=== PATIENT | female | born 1990 | race Caucasian/White ===

== ENCOUNTER → 2022-07-09 | Outpatient (CLI) | payer BC ==
[2022-07-09 11:16] VITALS: BP 128/85; PULSE 85; RESP 16; TEMP 98.2
--- NOTE | 2022-07-09 11:40 | P.GSHP ---
History of Present Illness H&P Date: 07/09/22 Chief Complaint: mass right breast Tj is a 31 year old white femlae seen in consultation for Nancy Molina regarding a mass in her right breast. She has been present for approximately 2 months. It has not increased in size. It is tender at times. She had a right breast mammogram and ultrasound performed 06-03-22. This revealed a approximately 2 cm mass in the 11 o'clock position of the right breast. On ultrasound the mass was irregular, which showed circumscribed margins, with increased through transmission. She has never had any surgery on her breast. She is not complaining of any other lumps masses or nodules in her breasts. There is no history of any trauma or infection in the breast. She didclear nipple discharge on the right approximately a week after she noticed the lump. Caffeine: mountain dew 1 liter/day Nicotine: 1/2 PPD since Chocolate: daily BCP: used them for about 1 year in her teens; DEPO shots for 5 years in her mid 20's Family history: father: prostate cancer maternal grandfather: prostate cancer Hormonal History: menarche: 13 G0 periods irregular, endometirosis; LMP first of June Surgical History: left ankle wisdom scope on uterus Medical History: depression/anxiety Social History: nicotine: Half a pack per day since Alcohol: Negative Drugs: Negative - Constitutional Constitutional: Reports sweats - EENT Eyes: denies blurred vision, denies pain Ears: deny: decreased hearing, tinnitus Ears, nose, mouth and throat: Denies headache, Denies sore throat - Breasts Breasts: bilateral: as per HPI - Cardiovascular Cardiovascular: Denies chest pain, Denies shortness of breath - Respiratory Respiratory: Denies cough, Denies 7 - Gastrointestinal Gastrointestinal: Denies abdominal pain, Denies diarrhea, Denies nausea, Denies vomiting - Genitourinary (Female) Genitourinary: Denies dysuria, Denies hematuria - Menstruation Menstruation: Reports cycle variable - Musculoskeletal Musculoskeletal: Denies myalgias - Integumentary Integumentary: Denies pruritus, Denies rash - Neurological Neurological: Denies numbness, Denies weakness - Psychiatric Psychiatric: Reports anxiety, Reports depression - Endocrine Endocrine: Denies fatigue, Denies weight change - Hematologic/Lymphatic Comment: none - Allergic/Immunologic Allergic/Immunologic: Reports as per HPI Past Medical History History of Any Multi-Drug Resistant Organisms: None Reported Smoking Status: Current every day smoker Medications and Allergies Home Medications Medication Instructions Recorded Confirmed Type Venlafaxine HCl ER [Effexor Xr] 75 mg PO DAILY 07/09/22 07/09/22 History Allergies Allergy/AdvReac Type Severity Reaction Status Date / Time No Known Allergies Allergy Unverified 07/09/22 11:16 Surgical - Exam Vital Signs Temp Pulse Resp BP Pulse Ox 98.2 F 85 16 128/85 99 07/09/22 11:13 07/09/22 11:13 07/09/22 11:13 07/09/22 11:13 07/09/22 11:13 BMI: 24.8 - General no distress - Eyes normal ocular movement - Neck trachea midline - Respiratory normal respiratory effort - Cardiovascular Rhythm: regular Heart Sounds: normal: S1, S2 - Abdomen Abdomen: soft, non tender, no guarding, no rigid, no rebound - Integumentary normal turgor - Neurologic no disoriented, no combative - Musculoskeletal normal gait, normal posture - Psychiatric oriented to time, oriented to person, oriented to place, speech is normal, memory intact Breast Exam: BRA: large sports bra inspection: Bilateral grade 2 ptosis Palpation: Right breast: Multiple positional exam approximately 2 cm nodule at the 12 o'clock position consistent with that which is seen on ultrasound no other dominant masses or nodules of concern breast tissue is very dense Right axilla: No adenopathy of concern Left breast: Multiple positional exam fibrocystic changes, dense breast tissue, no dominant masses or nodules of concern There is a dark nevus on the right breast in the inner aspect Results Right breast mammogram and ultrasound reviewed with Dr. Mckee, the patient has not had a left breast mammogram Assessment and Plan Assessment: Impression: Palpable mass right breast and consistent with radiographic abnormality most likely represents a fibroadenoma this is symptomatic and painful for the patient Patient has not had a left breast radiographic evaluation Plan: Ultrasound-guided core biopsy of the right breast followed by resection in the operating room Removal of the nevus on the right breast Left breast radiographic evaluation CC: Nancy Molina
== END ==
LOC: WWCWWP 10:54
PROVIDERS: ATTEND Surgery
DX: R92.8 Other abnormal and inconclusive findings on diagnostic imaging of breast (principal); E66.9 Obesity, unspecified; Z68.24 Body mass index [BMI] 24.0-24.9, adult

== ENCOUNTER → 2022-07-22 | Day surgery (SDC) | payer BC ==
--- NOTE | 2022-07-28 09:21 | USB ---
Pathology Description: Location: 11 o'clock, upper outer quadrant. Marker Left Behind. Needle Type: Mammotome Cores: 6 Skin Nicks: 1 Gauge: 13 The procedure of ultrasound guided core biopsy was explained to the patient. Benefits, alternatives, and risks were discussed. An informed consent was then obtained. A timeout was performed. The patient was placed in supine positioning for imaging and for the procedure. The overlying skin was prepped and draped in usual sterile fashion. Lidocaine was used as anesthetic into the skin and subcutaneous tissue up to area of concern in the right breast. A small skin geneva was made with surgical scalpel. Under ultrasound guidance, a 12-gauge vacuum assisted biopsy device was used to obtain 6 core samples. A biopsy clip was left in lesion. Coil Hydromark core marker was placed. The patient tolerated the procedure well without any immediate complication. The patient was kept in the radiology department for short stay after the procedure and then discharged home in stable condition. Postprocedure mammogram: The patient was transferred to mammography for physician ordered post procedure mammogram for clip placement verification. Impression: Successful ultrasound guided core biopsy of area of concern in the right breast, full pathology results to follow. Recommendations: 1. Recommendations are pending pathology results. Pathology Results: Result: Benign, Fibroadenoma. RIGHT BREAST, ELEVEN O'CLOCK, ULTRASOUND GUIDED NEEDLE CORE BIOPSY: Fibroadenoma. Tissue Density: Right: The breast tissue is heterogeneously dense. This may lower the sensitivity of mammography. Overall Assessment: Benign Assessment: MG diagnostic mammo RT wo CAD - Right: Benign, BI-RAD 2. Management: Diagnostic Breast Ultrasound of the right breast in 6 months. Electronically signed and approved by: Anthony Adams D.O. Radiologis [facility]
== END ==
LOC: RADUSWWP 10:13
PROVIDERS: ATTEND Surgery
DX: D24.1 Benign neoplasm of right breast (principal); R92.8 Other abnormal and inconclusive findings on diagnostic imaging of breast
CPT/HCPCS: 88305; 77065; 19083; A4648

== ENCOUNTER → 2022-07-31 | Outpatient (CLI) | payer BC ==
[2022-07-31 14:29] VITALS: BP 123/90; PULSE 81; RESP 16; TEMP 98
--- NOTE | 2022-07-31 14:58 | P.PN ---
Subjective Progress Note Date: 07/31/22 Principal diagnosis: Fibroadenoma right breast Tj is a 31 year old white femlae seen in consultation for Nancy Molina regarding a mass in her right breast. She has been present for approximately 2 months. It has not increased in size. It is tender at times. She had a right breast mammogram and ultrasound performed 06-03-22. This revealed a approximately 2 cm mass in the 11 o'clock position of the right breast. On ultrasound the mass was irregular, which showed circumscribed margins, with increased through transmission. She has never had any surgery on her breast. She is not complaining of any other lumps masses or nodules in her breasts. There is no history of any trauma or infection in the breast. She didclear nipple discharge on the right approximately a week after she noticed the lump. 07-31-22 The patient had an ultrasound core biopsy of the right breast on 07-22-22 which was a fibroadenoma. She tolerated the procedure without difficulty. Caffeine: mountain dew 1 liter/day Nicotine: 1/2 PPD since Chocolate: daily BCP: used them for about 1 year in her teens; DEPO shots for 5 years in her mid 20's Family history: father: prostate cancer maternal grandfather: prostate cancer Hormonal History: menarche: 13 G0 periods irregular, endometirosis; LMP first of June Surgical History: left ankle wisdom scope on uterus Medical History: depression/anxiety Social History: nicotine: Half a pack per day since Alcohol: Negative Drugs: Negative - Constitutional Constitutional: Reports sweats - EENT Eyes: denies blurred vision, denies pain Ears: deny: decreased hearing, tinnitus Ears, nose, mouth and throat: Denies headache, Denies sore throat - Breasts Breasts: bilateral: as per HPI - Cardiovascular Cardiovascular: Denies chest pain, Denies shortness of breath - Respiratory Respiratory: Denies cough - Gastrointestinal Gastrointestinal: Denies abdominal pain, Denies diarrhea, Denies nausea, Denies vomiting - Genitourinary (Female) Genitourinary: Denies dysuria, Denies hematuria - Menstruation Menstruation: Reports cycle variable - Musculoskeletal Musculoskeletal: Denies myalgias - Integumentary Integumentary: Denies pruritus, Denies rash - Neurological Neurological: Denies numbness, Denies weakness - Psychiatric Psychiatric: Reports anxiety, Reports depression - Endocrine Endocrine: Denies fatigue, Denies weight change - Hematologic/Lymphatic Comment: none - Allergic/Immunologic Allergic/Immunologic: Reports as per HPI Past Medical History History of Any Multi-Drug Resistant Organisms: None Reported Smoking Status: Current every day smoker Medications and Allergies Home Medications Medication Instructions Recorded Confirmed Type Venlafaxine HCl ER [Effexor Xr] 75 mg PO DAILY 07/09/22 07/09/22 History Allergies Allergy/AdvReac Type Severity Reaction Status Date / Time No Known Allergies Allergy Unverified 07/09/22 11:16 Objective - Vital Signs Vital signs: Vital Signs Temp 98.0 F 07/31/22 14:25 Pulse 81 07/31/22 14:25 Resp 16 07/31/22 14:25 BP 123/90 07/31/22 14:25 Pulse Ox 98 07/31/22 14:25 FiO2 Intake & Output 07/30/22 07/31/22 07/31/22 18:59 06:59 18:59 Weight 63.503 kg - Constitutional General appearance: Present: cooperative - EENT Eyes: Present: EOMI ENT: Present: hearing grossly normal - Neck Neck: Present: normal ROM - Respiratory Respiratory: bilateral: CTA - Cardiovascular Heart sounds: normal: S1, S2 - Gastrointestinal General gastrointestinal: Present: soft - Integumentary Integumentary Comment(s): Mild ecchymosis right breast at biopsy site Integumentary: Present: normal turgor - Musculoskeletal Musculoskeletal: Present: gait normal - Psychiatric Psychiatric: Present: A&O x's 3, appropriate affect, intact judgment & insight - Additional findings Additional findings: Breast Exam: BRA: large sports bra inspection: Mild ecchymosis right breast biopsy site, bilateral grade 2 ptosis Palpation: Right breast: Increased nodularity 12 o'clock position at the right breast no other dominant masses or nodules of concern Right axilla: No adenopathy of concern Left breast was positional exam fibrocystic changes dense breast tissue no dominant masses or nodules of concern There is a dark nevus in the right breast in the inner aspect Assessment and Plan Assessment: Impression: Core biopsy right breast fibroadenoma Palpable mass right breast Plan: Mammogram bilateral Needle localization excision lesion right breast mastopexy incision with oncoplastic tissue transfer Excision of dark nevus right breast Risk and benefits of the procedure were discussed with the patient. Risks include but are not limited to bleeding, infection, reaction to the anesthetic. The patient understands that she will be asymmetric if we resect this via mastopexy incision but wishes that to be done. CC: Nancy Molina
== END | disposition home or self-care (01) ==
LOC: WWCWWP 14:12
PROVIDERS: ATTEND Surgery
DX: Z53.9 Procedure and treatment not carried out, unspecified reason (principal)

== ENCOUNTER 2022-08-25 12:32 | Day surgery (SDC) | payer BC ==
[2022-08-18 14:31] VITALS: BMI 22.1
[~2022-08-25 12:32] MED LIST: ALPRAZolam 0.5 MG TAB PO PRN; DEXAMETHASONE SOD PHOSPHATE 4 MG/ML 1 ML VIAL IV ONE; HEPARIN SODIUM,PORCINE/PF 5,000 UNIT/0.5 ML SYRINGE SQ PRN; LACTATED RINGERS 1,000 ML IV SCH; ONDANSETRON 4 MG/2 ML VIAL IVP ONE; Pre Op ABX Message 1 EACH MISC MISCELLANE ONE; fentaNYL (PF) 50 MCG/ML 2 ML AMP IV PRN
[2022-08-25] MEDS ORDERED: LACTATED RINGERS 1,000 ML IV ONE (13:10)
[2022-08-25] MEDS ORDERED: LIDOCAINE 1% INJ 10MG/ML (30 ML VIAL-PF) SQ ONE (14:40)
[2022-08-25] MEDS ORDERED: HEPARIN SODIUM,PORCINE 5,000 UNIT/ML 1 ML VIAL SQ ONE (15:00)
[2022-08-25] MEDS ORDERED: fentaNYL (PF) 50 MCG/ML 2 ML AMP ONE (15:14)
[2022-08-25] MEDS ORDERED: LIDOCAINE 2% INJ 20 MG/ML (2 ML VIAL) ONE (15:14)
[2022-08-25] MEDS ORDERED: HYDROmorphone (PF) 1 MG/ML ONE (15:14)
[2022-08-25] MEDS ORDERED: PROPOFOL 10 MG/ML 20 ML VIAL IV ONE (15:14)
[2022-08-25] MEDS ORDERED: MIDAZOLAM 2 MG/2 ML VIAL ONE (15:14)
[2022-08-25] MEDS ORDERED: LIDOCAINE 1% INJ 10MG/ML (5 ML VIAL-PF) SQ ONE ×2 (15:35→16:28)
--- NOTE | 2022-08-25 16:14 | P.OP ---
Date of Procedure: 08/25/22 Preoperative Diagnosis: Fibroadenoma right breast Postoperative Diagnosis: Same Procedure(s) Performed: Needle localization excision fibroadenoma, onco-plastic tissue transfer 20 cm Anesthesia: VIRIDIANAA Surgeon: Winifred Ross Estimated Blood Loss (ml): 7 IV fluids (ml): 400 Pathology: other (Breast tissue) Condition: stable Disposition: same day Indications for Procedure: Symptomatic fibroadenoma Operative Findings: Dense breast tissue with mass Description of Procedure: In the preoperative area the markings for mastopexy incision were delineated. The patient had needle localization in the radiology suite of the fibroadenoma. She was then brought to the operative suite. Following induction of anesthesia the right breast was prepped and draped in a sterile fashion. The skin for mastopexy was de-epithelialized. The breast parenchyma was entered. The shaft of the localizing needle was identified. Circumferential dissection was performed around this and the lesion of concern was excised. The specimen was painted for orientation. A radiograph of the specimen was performed to confirm the area of concern had been removed. The deep tissues were evaluated for hemostasis. When we assured this was submitted been attained superior and inferior pillars were developed. The superior patellar was 5 x 3 cm, the inferior pillar was 5 x 1 cm. The total tissue transfer of 20 cm was performed. The patient will be brought together after titanium clips and then placed to jasvir the cavity. This pillars were secured using Vicryl suture. Following this the subcutaneous tissues were closed using 3-0 Vicryl suture. This was followed by subcuticular 4-0 Monocryl. A 4-0 nylon skin suture was placed. The patient tolerated the procedure in stable condition. All instrument and sponge counts were correct at the end of the case. Additionally there was a nevus on the right breast in the upper inner quadrant region which was excised. Wide excision was performed and the lesion was 5 mm in size. The deep tissues were closed using 4-0 Monocryl. The patient tolerated the procedure in stable condition. Steri-Strips were applied to this area.
--- NOTE | 2022-08-25 16:16 | P.DS ---
Providers Attending physician: Winifred Ross Primary care physician: Stated None Plan - Discharge Summary Discharge Rx Participant: Yes New Discharge Prescriptions: No Action Venlafaxine HCl ER [Effexor Xr] 75 mg PO DAILY Discharge Medication List Venlafaxine HCl ER [Effexor Xr] 75 mg PO DAILY 07/09/22 [History] Follow up Appointment(s)/Referral(s): Winifred Ross MD [STAFF PHYSICIAN] - 09/04/22 10:20 am Activity/Diet/Wound Care/Special Instructions: Do not drive until seen by Dr. Hamm Wear bra at all times May shower after 48 hours Discharge Disposition: HOME SELF-CARE
[2022-08-25 16:50] VITALS: TEMP 97.5
[2022-08-25 17:04] VITALS: RESP 16
[2022-08-25 17:43] VITALS: BP 137/82; PULSE 67
== END 2022-08-25 17:55 | disposition home or self-care (01) ==
LOC: OR 12:32
PROVIDERS: ATTEND Surgery
DX: D24.1 Benign neoplasm of right breast (principal); F17.210 Nicotine dependence, cigarettes, uncomplicated; Z88.5 Allergy status to narcotic agent; Z80.42 Family history of malignant neoplasm of prostate
CPT/HCPCS: 14001; 81025; 76098; 76999; 19285; J2250; J1644; J1100; J2405; J2001 ×3; J3010; J1170; J2704

== ENCOUNTER → 2022-09-04 | Outpatient (CLI) | payer BC ==
[2022-09-04 10:02] VITALS: BP 116/77; PULSE 64; RESP 17; TEMP 98.5
--- NOTE | 2022-09-04 10:06 | P.PN ---
Progress Note - Text Progress Note Date: 09/04/22 Tj is post op resection of fibroadenoma of the right breast on 08-25-12. Her pathology was benign fibroadenoma. She tolerated the procedure without difficulty. She is doing well at this time. Physical examination: Incision: Clean and dry chest wall and periareolar Lungs: Rhonchi at the bases Heart: Regular rate and rhythm Plan: Remove sutures Follow-up here in 6 months with right breast ultrasound Follow up sooner any questions or concerns Plan to return to work in 1 week CC: Karli Barrera
== END ==
LOC: WWCWWP 09:50
PROVIDERS: ATTEND Surgery
DX: D24.1 Benign neoplasm of right breast (principal); Z88.5 Allergy status to narcotic agent

== ENCOUNTER → 2023-03-05 | Outpatient (CLI) | payer BC ==
[2023-03-05 12:37] VITALS: BP 128/90; PULSE 84; RESP 17; TEMP 98.3
--- NOTE | 2023-03-05 13:11 | P.PN ---
Subjective Progress Note Date: 03/05/23 Principal diagnosis: fibroadenoma right breast The patient is a 32-year-old white female status post resection of fibroadenoma of the right breast on [id number]. Her pathology was a benign fibroadenoma. Has not had a repeat ultrasound of the breast since the resection. She is not complaining of any new lumps masses or nodules of concern in either breast. Caffeine: mountain dew 1 liter/day Nicotine: 1/2 PPD since Chocolate: daily BCP: used them for about 1 year in her teens; DEPO shots for 5 years in her mid 20's Family history: father: prostate cancer maternal grandfather: prostate cancer Hormonal History: menarche: 13 G0 periods irregular, endometirosis; LMP first of June Surgical History: left ankle wisdom scope on uterus Medical History: depression/anxiety Social History: nicotine: Half a pack per day since Alcohol: Negative Drugs: Negative - Constitutional Constitutional: Reports sweats - EENT Eyes: denies blurred vision, denies pain Ears: deny: decreased hearing, tinnitus Ears, nose, mouth and throat: Denies headache, Denies sore throat - Breasts Breasts: bilateral: as per HPI - Cardiovascular Cardiovascular: Denies chest pain, Denies shortness of breath - Respiratory Respiratory: Denies cough - Gastrointestinal Gastrointestinal: Denies abdominal pain, Denies diarrhea, Denies nausea, Denies vomiting - Genitourinary (Female) Genitourinary: Denies dysuria, Denies hematuria - Menstruation Menstruation: Reports cycle variable - Musculoskeletal Musculoskeletal: Denies myalgias - Integumentary Integumentary: Denies pruritus, Denies rash - Neurological Neurological: Denies numbness, Denies weakness - Psychiatric Psychiatric: Reports anxiety, Reports depression - Endocrine Endocrine: Denies fatigue, Denies weight change - Hematologic/Lymphatic Comment: none - Allergic/Immunologic Allergic/Immunologic: Reports as per HPI Past Medical History History of Any Multi-Drug Resistant Organisms: None Reported Smoking Status: Current every day smoker Medications and Allergies Home Medications Medication Instructions Recorded Confirmed Type Venlafaxine HCl ER [Effexor Xr] 75 mg PO DAILY 07/09/22 07/09/22 History Allergies Allergy/AdvReac Type Severity Reaction Status Date / Time No Known Allergies Allergy Unverified 07/09/22 11:16 Objective - Vital Signs Vital signs: Vital Signs Temp 98.3 F 03/05/23 12:34 Pulse 84 03/05/23 12:34 Resp 17 03/05/23 12:34 BP 128/90 03/05/23 12:34 Pulse Ox 97 03/05/23 12:34 FiO2 Intake & Output 03/04/23 03/05/23 03/05/23 18:59 06:59 18:59 Weight 56.699 kg - Constitutional General appearance: Present: cooperative - EENT Eyes: Present: EOMI ENT: Present: hearing grossly normal - Neck Neck: Present: normal ROM - Respiratory Respiratory: bilateral: CTA - Cardiovascular Heart sounds: normal: S1, S2 - Gastrointestinal General gastrointestinal: Present: soft - Integumentary Integumentary: Present: normal turgor - Musculoskeletal Musculoskeletal: Present: gait normal - Psychiatric Psychiatric: Present: A&O x's 3, appropriate affect, intact judgment & insight - Additional findings Additional findings: Breast Exam: BRA: large sports bra inspection: Bilateral grade 2 ptosis Palpation: Right breast: Multi-positional exam no dominate jennifer or nodules of concern, post op changes; well healed scar circumareolar area from her mastopexy incision Right axilla: No adenopathy of concern Left breast: Multi-positional exam fibrocystic changes, dense breast tissue, no dominant masses or nodules of concern There is a dark nevus on the right breast in the inner aspect Assessment and Plan Assessment: Impression: Fibrocystic breast changes Status post resection fibroadenoma right breast Plan: Right breast ultrasound Follow up after right breast ultrasound CC: Nancy Molina
== END ==
LOC: WWCWWP 12:25
PROVIDERS: ATTEND Surgery
DX: N60.11 Diffuse cystic mastopathy of right breast (principal); F17.200 Nicotine dependence, unspecified, uncomplicated; Z88.5 Allergy status to narcotic agent

== ENCOUNTER → 2023-04-23 | Outpatient (CLI) | payer BC ==
--- NOTE | 2023-04-23 08:33 | USB ---
Reason for Exam: Follow-up at short interval from prior study. Patient History: 08/25/2022, Benign US breast localization RT on the right side. 08/25/2022, US breast surgical speciment RT on the Right side. 07/22/2022, Benign US biopsy breast VAD RT on the right side. Prior Study Comparison: 07/22/2022 Right MG diagnostic mammo RT wo CAD, [facility]. Findings: The whole breast of the right breast, the axilla of the right breast and the retroareolar of the right breast were scanned. No solid or cystic masses are identified.. Overall Assessment: Negative, BI-RAD 1 Management: Screening Mammogram of both breasts in 1 year. A clinical breast exam by your physician is recommended on an annual basis and results should be correlated with mammographic findings. This exam should not preclude additional follow-up of suspicious palpable abnormalities. Results were given to the patient verbally at the time of exam. Electronically signed and approved by: Placido Chapman M.D. Radiologis
== END | disposition home or self-care (01) ==
LOC: RADUSWWP 08:04
PROVIDERS: ATTEND Surgery
DX: R92.8 Other abnormal and inconclusive findings on diagnostic imaging of breast (principal)

== ENCOUNTER → 2023-04-23 | Outpatient (CLI) | payer BC ==
[2023-04-23 08:35] VITALS: BP 134/89; PULSE 67; RESP 16; TEMP 98
--- NOTE | 2023-04-23 09:36 | P.PN ---
Subjective Progress Note Date: 04/23/23 Principal diagnosis: fibroadenoma right breast resected fibroadenoma right breast The patient is a 32-year-old white female status post resection of fibroadenoma of the right breast on [id number]. Her pathology was a benign fibroadenoma. Has had a repeat ultrasound of the right breast 04-23-23, with no recurrence noted of fibroadenoma. She is not complaining of any new lumps masses or nodules of concern in either breast. Caffeine: mountain dew 1 liter/day Nicotine: 1/2 PPD since Chocolate: daily BCP: used them for about 1 year in her teens; DEPO shots for 5 years in her mid 20's Family history: father: prostate cancer maternal grandfather: prostate cancer Hormonal History: menarche: 13 G0 periods irregular, endometirosis; LMP first of June Surgical History: left ankle wisdom scope on uterus Medical History: depression/anxiety Social History: nicotine: Half a pack per day since Alcohol: Negative Drugs: Negative - Constitutional Constitutional: Reports sweats - EENT Eyes: denies blurred vision, denies pain Ears: deny: decreased hearing, tinnitus Ears, nose, mouth and throat: Denies headache, Denies sore throat - Breasts Breasts: bilateral: as per HPI - Cardiovascular Cardiovascular: Denies chest pain, Denies shortness of breath - Respiratory Respiratory: Denies cough - Gastrointestinal Gastrointestinal: Denies abdominal pain, Denies diarrhea, Denies nausea, Denies vomiting - Genitourinary (Female) Genitourinary: Denies dysuria, Denies hematuria - Menstruation Menstruation: Reports cycle variable - Musculoskeletal Musculoskeletal: Denies myalgias - Integumentary Integumentary: Denies pruritus, Denies rash - Neurological Neurological: Denies numbness, Denies weakness - Psychiatric Psychiatric: Reports anxiety, Reports depression - Endocrine Endocrine: Denies fatigue, Denies weight change - Hematologic/Lymphatic Comment: none - Allergic/Immunologic Allergic/Immunologic: Reports as per HPI Past Medical History History of Any Multi-Drug Resistant Organisms: None Reported Smoking Status: Current every day smoker Medications and Allergies Home Medications Medication Instructions Recorded Confirmed Type Venlafaxine HCl ER [Effexor Xr] 75 mg PO DAILY 07/09/22 07/09/22 History Allergies Allergy/AdvReac Type Severity Reaction Status Date / Time No Known Allergies Allergy Unverified 07/09/22 11:16 Objective - Vital Signs Vital signs: Vital Signs Temp 98.0 F 04/23/23 08:32 Pulse 67 04/23/23 08:32 Resp 16 04/23/23 08:32 BP 134/89 04/23/23 08:32 Pulse Ox 99 04/23/23 08:32 FiO2 Intake & Output 04/22/23 04/23/23 04/23/23 18:59 06:59 18:59 Weight 56.699 kg - Constitutional General appearance: Present: cooperative - EENT Eyes: Present: EOMI ENT: Present: hearing grossly normal - Neck Neck: Present: normal ROM - Respiratory Respiratory: bilateral: CTA - Cardiovascular Heart sounds: normal: S1, S2 - Gastrointestinal General gastrointestinal: Present: soft - Integumentary Integumentary: Present: normal turgor - Musculoskeletal Musculoskeletal: Present: gait normal - Psychiatric Psychiatric: Present: A&O x's 3, appropriate affect, intact judgment & insight - Additional findings Additional findings: Breast Exam: BRA: large sports bra inspection: Bilateral grade 2 ptosis Palpation: Right breast: Multi-positional exam no dominate jennifer or nodules of concern, post op changes; well healed scar circumareolar area from her mastopexy incision Right axilla: No adenopathy of concern Left breast: Multi-positional exam fibrocystic changes, dense breast tissue, no dominant masses or nodules of concern There is a dark nevus on the right breast in the inner aspect Assessment and Plan Assessment: Impression: Fibrocystic breast changes Status post resection fibroadenoma right breast Plan: Right breast ultrasound on 04-23-23 no recurrence of fibroadenoma Follow up in your breast exam Monthly breast self exams Baseline mammogram at age 40 unless patient becomes symptomatic and has one done sooner CC: Nancy Molina
== END ==
LOC: WWCWWP 08:03
PROVIDERS: ATTEND Surgery
DX: R92.8 Other abnormal and inconclusive findings on diagnostic imaging of breast (principal); N60.11 Diffuse cystic mastopathy of right breast; F32.A Depression, unspecified; F41.9 Anxiety disorder, unspecified; F17.210 Nicotine dependence, cigarettes, uncomplicated; Z86.018 Personal history of other benign neoplasm; Z88.5 Allergy status to narcotic agent